=== PATIENT | female | born 1970 | race Caucasian/White ===

== ENCOUNTER → 2024-09-08 11:03 | Outpatient (REF) | payer OTHER, SELFPAY ==
[2024-09-08 15:01] LABS: Mumps Virus IgG Positive; Varicella Zoster IgG (VZV) Positive
== END ==
LOC: OHS 11:03
PROVIDERS: ATTENDING PHYSICIAN Nurse Practitioner Family
DX: Z23 Encounter for immunization (principal)
CPT/HCPCS: 36415; 86480; 86735; 86762; 86765; 86787